=== PATIENT | female | born 1945 | race Caucasian/White ===

== ENCOUNTER 2016-10-03 11:39 | Emergency (ER) | payer BC ==
[2016-10-03 11:49] VITALS: BMI 26.6
[2016-10-03] MEDS ORDERED: ALBUTEROL SO4 2.5/IPRATROPIUM 0.5 INH SOL 3 ML VIAL.NEB. NEB ONE ×2 (12:34→12:50)
--- NOTE | 2016-10-03 12:41 | PDOC ---
History of Present Illness - History of Present Illness Initial Comments: 10/03/16 13:04 The patient is a 71 year old female with a significant past medical hx of asthma and HTN who presents to the ED complaining of a cough for five days and asthma exacerbation today. The patient notes she has had a cough for the past few days, started to wheeze, and had an asthma attack today. Her last asthma attack was 6 years ago. The patient denies any new pets, carpets, cleaning products, and exposure to dust. The patient states she believed her cough and cold symptoms brought on her asthma attack. The patient did not get a flu shot this year. The patient refuses prednisone because she reports it causes her to have memory loss. The patient refuses hospitalization because she has a sick at home and needs to be there for him. The patient denies fever, chills, sweats, weakness, fatigue, malaise, and chest pain. The patient is a nonsmoker <Adriana Oglesby - Last Filed: 10/03/16 13:53> <Walter Cool - Last Filed: 10/03/16 14:40> - General Chief Complaint: Asthma Stated Complaint: SOB, ASTHMA ATTACK Time Seen by Provider: 10/03/16 12:41 Past History <Adriana Oglesby - Last Filed: 10/03/16 13:53> - Past Medical History Asthma: Yes HTN: Yes - Immunization History Immunization Up to Date: Yes - Psycho/Social/Smoking Cessation Hx Anxiety: No Suicidal Ideation: No Smoking History: Never smoked Have you smoked in the past 12 months: No Hx Alcohol Use: No Drug/Substance Use Hx: No Substance Use Type: None <Walter Cool - Last Filed: 10/03/16 14:40> - Past Medical History Allergies/Adverse Reactions: Allergies Allergy/AdvReac Type Severity Reaction Status Date / Time No Known Allergies Allergy Verified 10/03/16 11:49 Home Medications: Ambulatory Orders Albuterol Sulfate Inhaler - [Ventolin HFA Inhaler -] 2 inh IH Q4H PRN #1 inh 04/13 Aspirin [ASA -] 81 mg PO DAILY 10/03/16 Fluticasone Propionate [Flovent Diskus] 250 mcg IH BID #1 disk.w.dev 10/03/16 Levofloxacin [Levaquin] 500 mg PO DAILY #7 tablet 10/03/16 Quinapril HCl [Accupril -] 10 mg PO DAILY 10/03/16 Review of Systems - Review of Systems Able to Perform ROS?: Yes Comments:: 10/03/16 13:05 CONSTITUTIONAL: Absent: fever, chills, diaphoresis, generalized weakness, malaise, loss of appetite HEENT: Absent: rhinorrhea, nasal congestion, throat pain, throat swelling, difficulty swallowing, mouth swelling, ear pain, eye pain, visual Changes CARDIOVASCULAR: Absent: chest pain, syncope, palpitations, irregular heart rate, lightheadedness , peripheral edema RESPIRATORY: +Cough, wheezing, SOB. Absent: stridor, hemoptysis GASTROINTESTINAL: Absent: abdominal pain, abdominal distension, nausea, vomiting, diarrhea, constipation, melena, hematochezia GENITOURINARY: Absent: dysuria, frequency, urgency, hesitancy, hematuria, flank pain, genital pain MUSCULOSKELETAL: Absent: myalgia, arthralgia, joint swelling SKIN: Absent: rash, itching, pallor HEMATOLOGIC/IMMUNOLOGIC: Absent: easy bleeding, easy bruising, lymphadenopathy, frequent infections ENDOCRINE: Absent: unexplained weight gain, unexplained weight loss, heat intolerance, cold intolerance NEUROLOGIC: Absent: headache, focal weakness or paresthesias, dizziness, unsteady gait, seizure, mental status changes, bladder or bowel incontinence PSYCHIATRIC: Absent: anxiety, depression, suicidal or homicidal ideation, hallucinations. <Adriana Oglesby - Last Filed: 10/03/16 13:53> *Physical Exam - Vital Signs Last Vital Signs Temp Pulse Resp BP Pulse Ox 97.8 F 84 20 130/76 94 L 10/03/16 11:47 10/03/16 11:47 10/03/16 11:47 10/03/16 11:47 10/03/16 12:17 - Physical Exam Comments: 10/03/16 13:05 GENERAL: Well developed, well nourished. Awake and alert. In no acute distress. HEENT: Normocephalic, atraumatic. PERRLA, EOMI. No conjunctival pallor. Sclera are non- icteric. Moist mucous membranes. Oropharynx is clear. NECK: Supple. Full ROM. No JVD. Carotid pulses 2+ and symmetric, without bruits. No thyromegaly. No lymphadenopathy. CARDIOVASCULAR: Regular rate and rhythm. No murmurs, rubs, or gallops. Distal pulses are 2+ and symmetric. PULMONARY: +Expiratory and inspiratory wheezes bilaterally, fine crackles in the right lower lobe. ABDOMINAL: Soft. Non-tender. Non-distended. No rebound or guarding. No organomegaly. Normoactive bowel sounds. MUSCULOSKELETAL Normal range of motion at all joints. No bony deformities or tenderness. No CVA tenderness. EXTREMITIES: No cyanosis. No clubbing. No edema. No calf tenderness. SKIN: Warm and dry. Normal capillary refill. No rashes. No jaundice. NEUROLOGICAL: Alert, awake, appropriate. Cranial nerves 2-12 intact. No deficits to light touch and temperature in face, upper extremities and lower extremities. No motor deficits in the in face, upper extremities and lower extremities. Normoreflexic in the upper and lower extremities. PSYCHIATRIC: Cooperative. Good eye contact. Appropriate mood and affect. <Adriana Oglesby - Last Filed: 10/03/16 13:53> - Vital Signs Last Vital Signs Temp Pulse Resp BP Pulse Ox 97.8 F 84 20 130/76 94 L 10/03/16 11:47 10/03/16 11:47 10/03/16 11:47 10/03/16 11:47 10/03/16 12:17 <Walter Cool - Last Filed: 10/03/16 14:40> ED Treatment Course - LABORATORY CBC & Chemistry Diagram: 10/03/16 12:30 10/03/16 12:30 - ADDITIONAL ORDERS Additional order review: Laboratory Results 10/03/16 12:30 Urine Color Yellow Urine Appearance Clear Urine pH 7.0 Ur Specific [place] 1.016 Urine Protein Negative Urine Glucose (UA) Negative Urine Ketones Negative Urine Blood Negative Urine Nitrite Positive Urine Bilirubin Negative Urine Urobilinogen Negative Ur Leukocyte Esterase 3+ H - RADIOLOGY Radiograph Interpretation: 10/03/16 13:53 Chest X-Ray Comparison study July 23, 2012. Lung apices partially obscured by the soft tissues of the neck. Unchanged contour of the cardiomediastinal silhouette. No evidence of cardiomegaly. No evidence of vascular congestion, pulmonary edema. No evidence of pulmonary infiltrates atelectasis, pleural effusion, or pneumothorax. Intact visualized osseous structures. Impression. No evidence of active pulmonary disease. Reported By: Azam Gilliland MD 10/03/16 4654 - Medications Given in the ED: ED Medications Discontinued Medications Generic Name Dose Route Start Last Admin Trade Name Lili PRN Reason Stop Dose Admin Albuterol Sulfate 1 amp 10/03/16 12:50 10/03/16 12:58 Ventolin 0.083% Nebulizer Soln - NEB 10/03/16 12:51 1 amp ONCE ONE Administration Albuterol/Ipratropium 1 amp 10/03/16 12:50 10/03/16 12:58 Duoneb - NEB 10/03/16 12:51 1 amp ONCE ONE Administration <Adriana Oglesby - Last Filed: 10/03/16 13:53> - LABORATORY CBC & Chemistry Diagram: 10/03/16 12:30 10/03/16 13:38 <Walter Cool - Last Filed: 10/03/16 14:40> Medical Decision Making - Medical Decision Making 10/03/16 12:50 The patient is well-appearing and in no acute distress She very adamantly refuses steroids and hospitalization Will administer an additional albuterol neb Will administer magnesium IV Will follow closely 10/03/16 13:05 Urinalysis noted, with evidence of urinary tract infection Given the right lower lobe crackles, will treat UTI with Levaquin, as it Will also provide pulmonary coverage for possible early pneumonia 10/03/16 13:07 The patient is very well-appearing, and in no acute distress Her symptoms have completely resolved after treatment 10/03/16 13:55 Her symptoms remained completely resolved, and she remains well appearing Chest x-ray results noted, with no evidence of acute cardiopulmonary pathology Repeat lung exam with resolved wheezes, but persistent right, mild right lower lobe crackles CURB 65 score 2 However, given her age, the fact that she has a history of asthma, with current exacerbation, and the fact that she is refusing prednisone, I discussed the risks and benefits of discharge with outpatient treatment versus hospitalization. She adamantly refused hospitalization. She understands that this does place her at risk of increased morbidity and even mortality, excepts these risks, and understands the extreme importance of returning if her symptoms are not improved, if they worsen, or if she develops new symptoms. She understands the need to see her primary care physician tomorrow, and if she cannot, she will return to the emergency department. Clinical impression: Acute exacerbation of asthma; resolved Possible early pneumonia I discussed the physical exam findings, ancillary test results and final diagnoses with the patient. I answered all of the patient's questions. The patient was satisfied with the care received and felt comfortable with the discharge plan and treatment plan. The patient will call their primary care physician within 24 hours to arrange follow-up and will return to the Emergency Department with any new, persistent or worsening symptoms. A portion of this note was documented by scribe services under my direction. I have reviewed the details of the note, within reason, and agree with the documentation with the following case summary and management plan written by me. 10/03/16 14:39 <Walter Cool - Last Filed: 10/03/16 14:40> *DC/Admit/Observation/Transfer - Attestations Scribe Attestion: 10/03/16 13:05 Documentation prepared by Adriana Oglesby, acting as biomedical equipment tech for Walter Cool MD/DO. <Adriana Oglesby - Last Filed: 10/03/16 13:53> <Walter Cool - Last Filed: 10/03/16 14:40> Diagnosis at time of Disposition: Urinary tract infection, Exacerbation of asthma - Discharge Dispostion Disposition: HOME Condition at time of disposition: Improved - Prescriptions Prescriptions: Fluticasone Propionate [Flovent Diskus] 250 mcg IH BID #1 disk.w.dev Levofloxacin [Levaquin] 500 mg PO DAILY #7 tablet Albuterol Sulfate Inhaler - [Ventolin HFA Inhaler -] 2 inh IH Q4H PRN #1 inh PRN Reason: Short Of Breath/Wheezing - Patient Instructions Printed Discharge Instructions: Asthma -- Adult, DI for Pneumonia -- Adult, DI for Urinary Tract Infection (UTI) Additional Instructions: Return to the emergency department immediately with ANY new, persistent or worsening symptoms. You MUST call and follow up with your doctor tomorrow. Please make sure your doctor reviews the results of your emergency department evaluation. It is possible that you have early pneumonia. Hospitalization for pneumonia is recommended for someone in your age group, especially for someone with asthma. Because you are refusing to be hospitalized, it is very important that you follow-up with her primary care physician or return to the emergency department tomorrow for a repeat evaluation. Any worsening in your condition would be very dangerous. Take the Levaquin antibiotic and use the two inhalers as prescribed. Do NOT take the Azithromycin prescription. It was called to your pharmacy in error.
[2016-10-03] MEDS ORDERED: ALBUTEROL SO4 0.083% IH SOL 2.5 MG/3 ML VIAL.NEB. NEB ONE (12:50)
[2016-10-03] MEDS ORDERED: MAGNESIUM SULFATE 2 GM in SODIUM CHLORIDE 100 ML IVPB ONE (12:50)
[2016-10-03 12:53] LABS: URINE APPEARANCE CLEAR; URINE BILIRUBIN NEGATIVE (NEGATIVE); URINE BLOOD NEGATIVE (NEGATIVE); URINE COLOR YELLOW; URINE GLUCOSE (UA) NEGATIVE (NEGATIVE); URINE KETONE NEGATIVE (NEGATIVE); URINE NITRITE POSITIVE (NEGATIVE); URINE PROTEIN NEGATIVE (NEGATIVE); URINE UROBILINOGEN NEGATIVE E.U./dl (0.2-1.0)
[2016-10-03 12:54] LABS: EOSINOPHIL 6.4 % (0-4.5); MCH 29.3 pg (25.7-33.7); MCHC 32.7 g/dl (32.0-36.0); MEAN CELL VOLUME 89.6 fl (80-96); MEAN PLT VOLUME 9.5 fl (7.5-11.1); NEUTROPHILS 53.6 % (42.8-82.8); PLATELET COUNT 208 K/MM3 (134-434); RDW 15.1 % (11.6-15.6); WHITE BLOOD COUNT 6.1 K/mm3 (4.0-10.0)
[2016-10-03] MEDS ORDERED: MAGNESIUM SULF 50% (8.12 MEQ/2 ML-1 GM VIAL) ONE (12:54)
[2016-10-03 12:58] LABS: URINE LEUK ESTERASE 3+ (NEGATIVE)
[2016-10-03 13:04] LABS: URINE BACTERIA MANY /hpf (NONE SEEN); URINE HYALINE CAST 1 /lpf; URINE MUCUS RARE; URINE RBC 1 /hpf (0-3); URINE WBC 5 /hpf (3-5)
[2016-10-03] MEDS ORDERED: SODIUM CHLORIDE 1,000 ML IV STA (14:04)
[2016-10-03 14:31] LABS: ALBUMIN 3.3 g/dl (3.4-5.0); ANION GAP 7 (8-16); CO2 30 mmol/L (21-32); CREATININE 0.9 mg/dL (0.55-1.02); GLUCOSE,RANDOM 110 mg/dL (74-106); SGOT/AST 16 U/L (15-37); SGPT/ALT 17 U/L (12-78)
[2016-10-03 14:33] LABS: ALK PHOS 102 U/L (45-117); BILIRUBIN,TOTAL 0.5 mg/dL (0.2-1.0); TOT PROT 6.9 g/dl (6.4-8.2)
[2016-10-03 15:25] VITALS: BP 110/80; PULSE 75; TEMP 98.7
--- NOTE | 2016-10-05 14:57 | EKG ---
Test Reason : Blood Pressure : / mmHG Vent. Rate : 075 BPM Atrial Rate : 075 BPM P-R Int : 154 ms QRS Dur : 082 ms QT Int : 408 ms P-R-T Axes : 045 045 038 degrees QTc Int : 455 ms NORMAL SINUS RHYTHM WHEN COMPARED WITH ECG OF 23-JUL-2012 12:07, NO SIGNIFICANT CHANGE WAS FOUND Confirmed by SVETLANA JACKSON MD ([id number]) on 10/05/2016 2:56:47 PM Referred By: Confirmed By:VSETLANA JACKSON MD
== END 2016-10-03 15:21 | disposition home or self-care (01) ==
LOC: JER 11:39
PROC: 3E0F7GC Introduction of Other Therapeutic Substance into Respiratory Tract, Via Natural or Artificial Opening (ICD-10-PCS; principal; 2016-10-03)
PROC: 3E0F7GC Introduction of Other Therapeutic Substance into Respiratory Tract, Via Natural or Artificial Opening (ICD-10-PCS; 2016-10-03)
PROC: 3E0337Z Introduction of Electrolytic and Water Balance Substance into Peripheral Vein, Percutaneous Approach (ICD-10-PCS; 2016-10-03)
PROC: 3E033GC Introduction of Other Therapeutic Substance into Peripheral Vein, Percutaneous Approach (ICD-10-PCS; 2016-10-03)
DX: J45.901 Unspecified asthma with (acute) exacerbation (principal); N39.0 Urinary tract infection, site not specified
CPT/HCPCS: 36415; 71010-TC; 80053; 81003; 81015; 85025; 93005; 93010; 99283-25

== ENCOUNTER 2017-08-30 10:31 | Emergency (ER) | payer BC ==
[2017-08-30 10:36] VITALS: BP 136/78; PULSE 103; TEMP 98.2; BMI 26.9
[2017-08-30] MEDS ORDERED: ALBUTEROL SO4 2.5/IPRATROPIUM 0.5 INH SOL 3 ML VIAL.NEB. NEB ONE (11:34)
--- NOTE | 2017-08-30 12:07 | PDOC ---
History of Present Illness - General Chief Complaint: Asthma Stated Complaint: ASTHMA Time Seen by Provider: 08/30/17 11:18 - History of Present Illness Initial Comments: 08/30/17 11:34 CHIEF COMPLAINT: cough HISTORY OF PRESENT ILLNESS: 71 yo F with hx of HTN and asthma presents to ED with cough x 2 days. Patient denies any runny nose, sneezing, sore throat, nausea, vomiting, fever, or chills. She reports "just a little chest discomfort when I'm coughing a lot." No recent travel or sick contacts. PAST MEDICAL HISTORY: Denies past medical history FAMILY HISTORY: Denies SOCIAL HISTORY: Denies tobacco, alcohol, illicit drug use. SURGICAL HISTORY: Denies ALLERGIES: No known drug allergies REVIEW OF SYSTEMS General/Constitutional: Denies fever or chills. Denies weakness, weight change. HEENT: Denies change in vision. Denies ear pain or discharge. Denies sore throat. Cardiovascular: Denies chest pain or shortness of breath. Respiratory: Cough x 2 days. Gastrointestinal: Denies nausea, vomiting, diarrhea or constipation. Denies rectal bleeding. Genitourinary: Denies dysuria, frequency, or change in urination. Musculoskeletal: Denies joint or muscle swelling or pain. Denies neck or back pain. Skin and breasts: Denies rash or easy bruising. Neurologic: Denies headache, vertigo, loss of consciousness, or loss of sensation. PHYSICAL EXAM General Appearance: Well-appearing, appropriately dressed. No apparent distress. HEENT: EOMI, PERRLA, normal ENT inspection, normal voice, TMs normal, pharynx normal. No conjunctival pallor. No photophobia, scleral icterus. Respiratory/Chest: Lungs CTAB. No shortness of breath, chest tenderness, respiratory distress, accessory muscle use. No crackles, rales, rhonchi, stridor , wheezing, dullness Cardiovascular: RRR. S1, S2. Gastrointestinal/Abdominal: Normal bowel sounds. Abdomen soft, non-distended. No tenderness or rebound tenderness. No organomegaly, pulsatile mass, guarding , hernia, hepatomegaly, splenomegaly. Musculoskeletal/Extremities: Normal inspection. FROM of all extremities, normal capillary refill. Pelvis Stable. No CVA tenderness. No tenderness to extremities, pedal edema, swelling, erythema or deformity. Integumentary: Appropriate color, dry, warm. 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 Fully oriented, alert. Appropriate mood/affect. Motor strength 5/5. No appreciable EOM palsy, facial droop or sensory deficit. 08/30/17 12:09 Past History - Past Medical History Allergies/Adverse Reactions: Allergies Allergy/AdvReac Type Severity Reaction Status Date / Time No Known Allergies Allergy Verified 08/30/17 18:10 Home Medications: Ambulatory Orders Aspirin [ASA -] 81 mg PO DAILY 10/03/16 Quinapril HCl [Accupril -] 10 mg PO DAILY 10/03/16 Albuterol Sulfate Inhaler - [Ventolin HFA Inhaler -] 2 inh IH Q4H PRN #1 inh 10/12 Azithromycin [Zithromax 250mg Tablets -] 250 mg PO UTDICT #6 tab 08/30/17 Benzonatate [Tessalon Pearls -] 100 mg PO TID #21 capsule 08/30/17 Asthma: Yes COPD: No DVT: No HTN: Yes - Immunization History Immunization Up to Date: Yes - Suicide/Smoking/Psychosocial Hx Smoking History: Never smoked Have you smoked in the past 12 months: No If you are a former smoker, when did you quit?: 30YRS Information on smoking cessation initiated: No Hx Alcohol Use: No Drug/Substance Use Hx: No Substance Use Type: None *Physical Exam - Vital Signs Last Vital Signs Temp Pulse Resp BP Pulse Ox 98.2 F 103 H 20 136/78 97 08/30/17 10:33 08/30/17 10:33 08/30/17 10:33 08/30/17 10:33 08/30/17 10:33 ED Treatment Course - RADIOLOGY Radiology Studies Ordered: Category Date Time Status CHEST PA & LAT [RAD] Stat Radiology 08/30/17 11:30 Ordered Medical Decision Making - Medical Decision Making 08/30/17 12:09 71 yo F with hx of HTN and asthma presents to ED with cough x 2 days. Clinical presentation consistent with viral cough, no signs or symptoms for cardiac etiology of chest discomfort. Patient continuously requests to go to main ED where her is being evaluated. -Duoneb treatment given -CXR r/o pneumonia -flu swab Advised patient to take medication as prescribed and follow up with PMD if symptoms persist. Advised patient of signs and symptoms for return to ED. Patient verbalized understanding and agrees to plan. *DC/Admit/Observation/Transfer Diagnosis at time of Disposition: Cough - Discharge Dispostion Disposition: HOME Condition at time of disposition: Stable Admit: No - Prescriptions Prescriptions: Albuterol Sulfate Inhaler - [Ventolin HFA Inhaler -] 2 inh IH Q4H PRN #1 inh PRN Reason: Short Of Breath/Wheezing Azithromycin [Zithromax 250mg Tablets -] 250 mg PO UTDICT #6 tab Benzonatate [Tessalon Pearls -] 100 mg PO TID #21 capsule - Referrals Referrals: Faraz Choi MD [Primary Care Provider] - - Patient Instructions Printed Discharge Instructions: DI for Acute Bronchitis Additional Instructions: Please take medications as prescribed. Follow up with your primary care doctor if symptoms persist past 1 week. If you develop any new or worsening symptoms, please return to the ER immediately. - Post Discharge Activity
== END 2017-08-30 12:28 | disposition home or self-care (01) ==
LOC: JERFT 10:31
PROC: 3E0F7GC Introduction of Other Therapeutic Substance into Respiratory Tract, Via Natural or Artificial Opening (ICD-10-PCS; principal; 2017-08-30)
DX: R05 Cough (principal); B97.89 Other viral agents as the cause of diseases classified elsewhere; I10 Essential (primary) hypertension; J45.909 Unspecified asthma, uncomplicated
CPT/HCPCS: 71046-TC-FY; 87804; 94640; 99281-25

== ENCOUNTER 2017-08-30 17:55 | Emergency (ER) | payer BC ==
[2017-08-30 18:10] VITALS: BP 141/70; PULSE 96; TEMP 98.9; BMI 26.9
== END 2017-08-30 19:26 | disposition left against medical advice (07) ==
LOC: JERFT 17:55
DX: J45.909 Unspecified asthma, uncomplicated (principal)
CPT/HCPCS: 99281-25

== ENCOUNTER 2018-12-15 04:56 | Day surgery (SDC) | payer BC | END 2018-12-15 16:10 | disposition home or self-care (01) | LOC: JASU-SURG 04:56 ==

== ENCOUNTER 2022-02-03 14:18 | Observation (INO) | payer BC ==
[2022-02-03 14:42] VITALS: TEMP 98.2; BMI 28.1
[2022-02-03 15:19] LABS: BASO % 0.7 % (0-2.0); EOS % 4.2 % (0-4.5); HEMATOCRIT 42.1 % (32.4-45.2); HEMOGLOBIN 14.1 GM/dL (10.7-15.3); LYMPH % 23.3 % (8-40); MCH 30.2 pg (25.7-33.7); MCHC 33.5 g/dl (32.0-36.0); MEAN CELL VOLUME 90.2 fl (80-96); MONO % 8.1 % (3.8-10.2); NEUT % 63.7 % (42.8-82.8); PLATELET COUNT 238 10^3/uL (134-434); RBC 4.67 M/mm3 (3.60-5.2); RDW 14.6 % (11.6-15.6); WHITE BLOOD COUNT 7.3 K/mm3 (4.0-10.0)
[2022-02-03 15:26] LABS: INR 1.14 (0.83-1.09); PROTHROMBIN TIME (PATIENT) 13.1 SEC (9.7-13.0)
[2022-02-03 15:29] LABS: ACTIVATED PTT 37.8 SECONDS (25.2-36.5)
[2022-02-03 15:36] LABS: CALCIUM 9.7 mg/dL (8.5-10.1)
[2022-02-03 15:37] LABS: BLOOD UREA NITROGEN 27.6 mg/dL (7-18)
[2022-02-03 15:40] LABS: CREATININE 1.2 mg/dL (0.55-1.3)
[2022-02-03 15:41] LABS: BILIRUBIN,TOTAL 0.4 mg/dL (0.2-1)
[2022-02-03] MEDS ORDERED: FAMOTIDINE 20 MG/50 ML IVPB 20 MG/50 ML MG IVPB ONE ×2 (16:13→16:41)
[2022-02-03] MEDS ORDERED: MAG HYDROX/AL HYDROX/SIMETH -MYLANTA- ORAL SUSPENSION PO ONE (16:35)
[2022-02-03] MEDS ORDERED: MAG HYDROX/AL HYDROX/SIMETH 30 ML UNIT-DOSE CUP ONE (16:41)
[2022-02-03 20:23] VITALS: BP 136/72; PULSE 75
[2022-02-03] MEDS ORDERED: ASPIRIN 81 MG CHEWABLE TABLETS PO ONE (20:47)
[2022-02-03] MEDS ORDERED: ASPIRIN 81 MG CHEWABLE TABLETS ONE (20:54)
== END 2022-02-03 23:42 | disposition home or self-care (01) ==
LOC: JER 14:18 → JERBED 21:27
PROVIDERS: ADMIT Hospitalist; ATTEND Hospitalist
PROC: 3E033GC Introduction of Other Therapeutic Substance into Peripheral Vein, Percutaneous Approach (ICD-10-PCS; principal; 2022-02-03)
DX: R10.13 Epigastric pain (principal); R60.0 Localized edema; K21.9 Gastro-esophageal reflux disease without esophagitis; I10 Essential (primary) hypertension; J45.909 Unspecified asthma, uncomplicated; M79.7 Fibromyalgia; I83.90 Asymptomatic varicose veins of unspecified lower extremity; Z29.8 Encounter for other specified prophylactic measures; Z87.891 Personal history of nicotine dependence
CPT/HCPCS: 36415; 71046-TC-FY; 71275-TC; 80053; 84484; 85025; 85379; 85610; 85730; 93005; 93010; 96365; 99285-25; C9803-CS; G0378; Q9967; U0003; U0005